=== PATIENT | female | born 1985 | race Caucasian/White ===

== ENCOUNTER 2017-06-27 10:04 | Emergency (ER) | payer OTHER ==
--- NOTE | 2017-06-27 10:37 | EDPHY ---
H & P Smoking Status: Never smoked Time Seen by Provider: 06/27/17 10:15 HPI/ROS: CHIEF COMPLAINT: Vaginal bleeding HISTORY OF PRESENT ILLNESS: 31-year-old female presents to the emergency department by private vehicle with concerns about vaginal bleeding. She is approximately 11 weeks . LMP was 04/12/2017. EDC is 01/18/2018. She is 1 para 0 AB 0. She has very mild lower abdominal discomfort more so on the left side. She has a known left ovarian cyst. She does not feel nauseous. No vomiting. No chest pain or difficulty breathing. No flank pain. No urinary symptoms. No reported trauma. REVIEW OF SYSTEMS: Constitutional: No fever, no chills. Eyes: No double or blurry vision. ENT: No sore throat. Respiratory: No cough, no shortness of breath. Cardiac: No chest pain. Gastrointestinal: No abdominal pain, vomiting or diarrhea. Genitourinary: Vaginal bleeding. No dysuria. Musculoskeletal: No neck or back pain. Skin: No rashes. Neurological: No headache. (Uma Branch) Past Medical/Surgical History: LMP 04/12/2017, 11 weeks with an EDC of 01/18/2018, O-positive blood ( IzabelaradhaSandraUma M) Social History: from [place] (Uma Branch) Physical Exam: General Appearance: Alert, no distress. 130/79. Eyes: Pupils equal and round. Extraocular motions are all intact. ENT: Mouth: Mucous membranes moist. Respiratory: No wheezing, rhonchi, or rales, lungs are clear to auscultation. Cardiovascular: Regular rate and rhythm. Gastrointestinal: Abdomen is soft and nontender, no masses, no rebound or guarding, bowel sounds normal. No CVA tenderness bilaterally. Neurological: Alert and oriented x 3, cranial nerves II through XII grossly intact Skin: Warm and dry, no rashes. Musculoskeletal: Nontender to palpate along the cervical, thoracic or lumbar spine. Neck is supple. Extremities: Full range of motion and no peripheral edema. Psychiatric: Patient is oriented X 3, there is no agitation. (Uma Branch) Constitutional: Initial Vital Signs Temperature (C) 36.6 C 06/27/17 10:06 Heart Rate 84 06/27/17 10:06 Respiratory Rate 18 06/27/17 10:06 Blood Pressure 130/79 H 06/27/17 10:06 O2 Sat (%) 98 06/27/17 10:06 O2 Delivery Mode Room Air Allergies/Adverse Reactions: No Known Allergies Allergy (Unverified 06/27/17 10:09) Home Medications: Medication Instructions Recorded Vit27&Calcium/Iron/FA 1 each PO DAILY 06/27/17 [ Rx 1 Tablet (RX)] Medical Decision Making ED Course/Re-evaluation: 31-year-old female presents to the emergency department with concerns about vaginal bleeding. She is approximately 11 weeks . She has no real abdominal pain. The pelvic ultrasound reveals single living IUP measuring approximately 11 weeks with a heart rate of 164. No evidence of subchorionic hemorrhage. Patient was reassured. Her CBC was normal. She is comfortable being discharged home. She was given copies of her laboratory studies as well as ultrasound for follow-up with her OBGYN in [place]. She was instructed to return if she developed abdominal pain or if she felt worse in any way. (Uma Branch) I did not see this pain and while she was in the emergency department. However her care was discussed with the PA while the patient was in the department. I agree with treatment plan and management (Titi Barry) Differential Diagnosis: Including but not limited to ectopic , intrauterine , threatened , anemia (Uma Branch) - Data Points Laboratory Results: Laboratory Results 06/27/17 10:21 Departure - Departure Disposition: Home, Routine, Self-Care Clinical Impression: Intrauterine , Vaginal bleeding during Condition: Good Instructions: (ED), First Trimester Vaginal Bleed (ED) Additional Instructions: vitamins. Follow up with [facility] this week to recheck. Referrals: MASON GUTIERREZ [Other] - As per Instructions
[2017-06-27 10:39] LABS: PLATELET COUNT 262 10^3/uL (150-400)
[2017-06-27 12:57] VITALS: BP 136/75
== END 2017-06-27 12:56 | disposition home or self-care (01) ==
DX: O20.8 Other hemorrhage in early pregnancy (principal); Z3A.11 11 weeks gestation of pregnancy